=== PATIENT | female | born 1990 | race Two or more races ===

== ENCOUNTER 2022-12-25 04:19 | Day surgery (SDC) | payer OTHER ==
[2022-12-25] MEDS ORDERED: oxyCODONE HCL 5 MG TABLET PO PRN (09:18)
[2022-12-25] MEDS ORDERED: ONDANSETRON 4 MG/2 ML VIAL IVPUSH PRN (09:18)
[2022-12-25] MEDS ORDERED: LACTATED RINGERS SOLUTION 1,000 ML IV SCH (09:30)
[2022-12-25] MEDS ORDERED: MIDAZOLAM HCL 2 MG/2 ML SINGLE DOSE VIAL ONE (09:51)
[2022-12-25] MEDS ORDERED: ceFAZolin SODIUM 1 GM VIAL IVPB ONE (10:02)
[2022-12-25] MEDS ORDERED: ACETAMINOPHEN 325 MG TABLET (FP) PO PRN (10:52)
[2022-12-25] MEDS ORDERED: IBUPROFEN 400 MG TABLET (FP) PO PRN (10:52)
[2022-12-25 12:24] VITALS: BP 106/51; PULSE 78; RESP 17; TEMP 97.8
== END 2022-12-25 12:25 | disposition home or self-care (01) ==
LOC: JASU-SURG 04:19
PROVIDERS: ATTEND Specialist
PROC: 10D17ZZ Extraction of Products of Conception, Retained, Via Natural or Artificial Opening (ICD-10-PCS; principal; 2022-12-25 10:00)
DX: O02.1 Missed abortion (principal)
CPT/HCPCS: 88305-TC; 94760

== ENCOUNTER 2024-05-14 07:30 | Inpatient (IN) | payer OTHER ==
[2024-05-14] MEDS: ELECTROLYTE-148 SOLN 1,000 ML IV SCH (08:15)
[2024-05-14 08:28] LABS: INR 0.96 (0.83-1.09)
[2024-05-14 08:33] LABS: BASO % 0.5 % (0-2.0); HEMATOCRIT 38.7 % (32.4-45.2); HEMOGLOBIN 13.6 GM/dL (10.7-15.3); LYMPH % 19.5 % (8-40); MCH 32.2 pg (25.7-33.7); MCHC 35.1 g/dl (32.0-36.0); MEAN PLT VOLUME 9.9 fl (7.5-11.1); PLATELET COUNT 154 10^3/uL (134-434); RBC 4.21 M/mm3 (3.60-5.2); RDW 13.9 % (11.6-15.6); WHITE BLOOD COUNT 9.9 K/mm3 (4.0-10.0)
[2024-05-14] MEDS ORDERED: OXYTOCIN 30 UNITS in 0.9% NS 30 UNIT/500 ML INFUS.BAG IVPB ONE (08:33)
[2024-05-14] MEDS: OXYTOCIN 30 UNITS in 0.9% NS 30 UNIT/500 ML INFUS.BAG IVPB SCH (08:36)
[2024-05-14 08:39] LABS: POTASSIUM 4.1 mmol/L (3.5-5.1)
[2024-05-14 08:41] LABS: BLOOD UREA NITROGEN 9.4 mg/dL (7-18); CALCIUM 8.7 mg/dL (8.5-10.1)
[2024-05-14 08:44] LABS: CREATININE 0.6 mg/dL (0.55-1.3)
[2024-05-14 09:17] VITALS: BMI 24.3
[2024-05-14 11:41] LABS: SYPHILIS W/ RPR CONF NON-REACTIVE (NONREACTIVE)
[2024-05-14 12:10] LABS: HIV INTERPRETATION NEGATIVE (NEGATIVE)
[2024-05-14] MEDS ORDERED: FENTANYL/BUPIVACAINE/NS/PF - PCEA - 50 ML DISP.SYRIN EP ONE (13:38)
[2024-05-14] MEDS ORDERED: NALOXONE HCL 0.4 MG/ML VIAL IVPUSH PRN (13:44)
[2024-05-14] MEDS ORDERED: LIDO 2%/EPI 1:200000 PRESRVFRE (20 ML SDVIAL) ONE (13:49)
[2024-05-14] MEDS: FENTANYL/BUPIVACAINE/NS/PF - PCEA - 50 ML DISP.SYRIN EP SCH (14:00)
[2024-05-14] MEDS ORDERED: BUPIVACAINE HCL/PF 0.25% (2.5MG/ML) 10 ML VIAL ONE (14:10)
[2024-05-14] MEDS ORDERED: LIDOCAINE HCL 1% PRESERVATIVE FREE - 30ML VIAL ONE (16:41)
[2024-05-14] MEDS ORDERED: OXYTOCIN 20 UNITS in 0.9% NS 20 UNIT/1,000 ML INFUS.BAG IV ONE (16:42)
[2024-05-14] MEDS: OXYTOCIN 20 UNITS in 0.9% NS 20 UNIT/1,000 ML INFUS.BAG IV SCH (19:30)
[2024-05-14] MEDS: ACETAMINOPHEN 325 MG TABLET (FP) PO PRN (20:05)
[2024-05-14] MEDS ORDERED: ACETAMINOPHEN 325 MG TABLET (FP) ONE (20:05)
[2024-05-14] MEDS ORDERED: oxyCODONE HCL 5 MG TABLET PO PRN (20:30)
[2024-05-14] MEDS ORDERED: METHYLERGONOVINE MALEATE 0.2 MG/1 ML AMP IM PRN (20:30)
[2024-05-14] MEDS ORDERED: BISACODYL 10 MG SUPP.RECT RC PRN (20:30)
[2024-05-14] MEDS: IBUPROFEN 600 MG TABLET (FP) PO PRN (23:38)
[2024-05-14] MEDS: BENZOCAINE 20% 57 GM BOTTLE TP PRN (23:42)
[2024-05-14] MEDS: WITCH HAZEL 50% (TUCKS) 40 PAD/JAR PAD TP PRN (23:43)
[2024-05-14] MEDS: BENZOCAINE 28 GM HEMORRHOIDAL OINTMENT TP PRN (23:43)
[2024-05-15 09:56] LABS: BASO % 0.2 % (0-2.0); EOS % 0.8 % (0-4.5); HEMATOCRIT 26.2 % (32.4-45.2); HEMOGLOBIN 9.4 GM/dL (10.7-15.3); LYMPH % 9.4 % (8-40); MCH 32.7 pg (25.7-33.7); MCHC 35.9 g/dl (32.0-36.0); MEAN CELL VOLUME 91.3 fl (80-96); MONO % 8.2 % (3.8-10.2); NEUT % 81.4 % (42.8-82.8); PLATELET COUNT 130 10^3/uL (134-434); RBC 2.87 M/mm3 (3.60-5.2); RDW 13.6 % (11.6-15.6); WHITE BLOOD COUNT 16.4 K/mm3 (4.0-10.0)
[2024-05-15] MEDS: SENNOSIDES/DOCUSATE COMBO (SENNA PLUS) TABLET (UD) PO PRN (20:14)
[2024-05-16 09:02] VITALS: BP 103/62; PULSE 72; RESP 16; TEMP 98.2
== END 2024-05-16 14:05 | disposition home or self-care (01) | DRG 560 ==
LOC: JLDR 07:30 → J3W 23:09
PROVIDERS: ADMIT Specialist; ATTEND Specialist
PROC: 10D07Z6 Extraction of Products of Conception, Vacuum, Via Natural or Artificial Opening (ICD-10-PCS; principal; 2024-05-14)
PROC: 0W8NXZZ Division of Female Perineum, External Approach (ICD-10-PCS; 2024-05-14)
DX: O66.5 Attempted application of vacuum extractor and forceps (principal); Z3A.39 39 weeks gestation of pregnancy; Z37.0 Single live birth
CPT/HCPCS: 36415; 59409; 80048; 85025; 85610; 85730; 86780; 86803; 86850; 86900; 86901; 87389